=== PATIENT | male | born 1990 | race Caucasian/White ===

== ENCOUNTER 2022-03-17 20:23 | Emergency (ER) | payer OTHER ==
[2022-03-17 20:54] VITALS: PULSE 88; RESP 16; TEMP 98.5
[2022-03-17] MEDS ORDERED: ORPHENADRINE 30 MG/ML 2 ML VIAL IM STA (23:42)
[2022-03-17] MEDS ORDERED: ALPRAZolam 0.25 MG TAB PO STA (23:42)
[2022-03-17] MEDS ORDERED: LIDOCAINE 5% PATCH TOPICAL SCH (23:45)
--- NOTE | 2022-03-17 23:46 | ED ---
General Adult HPI - General Chief complaint: GI Bleed Stated complaint: Abd Cramping/Bloody Stool Time Seen by Provider: 03/17/22 23:32 Source: patient Mode of arrival: ambulatory Limitations: no limitations - History of Present Illness Initial comments: This is a 31-year-old male that presents to the emergency room with complaints of bright red blood on the toilet paper when he wiped today. Patient states that he also has chronic low back pain. He is currently at [place] for the past 8 days for fentanyl abuse and is taking naproxen and Motrin for chronic pain. He states he has a history of back surgery for scoliosis as a child and he has had chronic back pain ever since. He states he also has anxiety. -: days(s) (1) Location: back Severity scale (1-10): 8 Quality: aching Consistency: constant Improves with: none Worsens with: movement Associated Symptoms: denies other symptoms - Related Data Allergies Allergy/AdvReac Type Severity Reaction Status Date / Time haloperidol [From Haldol] Allergy Unknown Verified 03/17/22 20:54 Review of Systems ROS Statement: Those systems with pertinent positive or pertinent negative responses have been documented in the HPI. ROS Other: All systems not noted in ROS Statement are negative. Past Medical History Past Medical History: Seizure Disorder History of Any Multi-Drug Resistant Organisms: None Reported Additional Past Surgical History / Comment(s): scoliosis surgery Past Psychological History: Anxiety, Bipolar, Depression, PTSD Smoking Status: Current every day smoker Past Alcohol Use History: None Reported Past Drug Use History: Heroin, Marijuana, Opiates General Exam Limitations: no limitations General appearance: alert, in no apparent distress Neck exam: Present: normal inspection, full ROM. Absent: tenderness, meningismus Respiratory exam: Present: normal lung sounds bilaterally. Absent: respiratory distress, accessory muscle use Cardiovascular Exam: Present: regular rate GI/Abdominal exam: Present: soft. Absent: distended, tenderness Rectal exam: Present: normal inspection, normal rectal tone. Absent: black stool, bloody stool, fecal impaction, hemorrhoids, mass, tenderness Extremities exam: Present: normal inspection, full ROM, normal capillary refill. Absent: tenderness, pedal edema Back exam: Present: normal inspection, paraspinal tenderness, vertebral tenderness, other (Midline surgical scar noted). Absent: CVA tenderness (R), CVA tenderness (L), rash noted Expanded Back exam: Absent: saddle anesthesia Neurological exam: Present: alert, oriented X3, normal gait Psychiatric exam: Present: normal affect, normal mood Skin exam: Present: warm, dry, intact, normal color. Absent: cyanosis, diaphoretic, petechiae, pallor Course Vital Signs 03/17/22 03/18/22 20:48 01:24 Temperature 98.5 F Pulse Rate 88 Respiratory 16 Rate Blood Pressure 116/68 111/65 O2 Sat by Pulse 99 Oximetry Medical Decision Making - Medical Decision Making Patient presents with complaints of bright red rectal bleeding once today. Patient states blood was on the toilet paper but no blood in the toilet bowl. Rectal exam shows no fissures, good tone and no gross blood. Abdomen is soft and nontender. Patient is eating a pizza at time of discharge. Vital signs are stable. Hemoglobin and hematocrit are stable. Patient was directed to follow up with his primary care doctor return to the emergency room with any new or concerning symptoms. - Lab Data Result diagrams: 03/18/22 00:12 Lab Results 03/18/22 Range/Units 00:12 WBC 8.6 (3.8-10.6) k/uL RBC 4.53 (4.30-5.90) m/uL Hgb 13.5 (13.0-17.5) gm/dL Hct 42.5 (39.0-53.0) % MCV 93.7 (80.0-100.0) fL MCH 29.7 (25.0-35.0) pg MCHC 31.7 (31.0-37.0) g/dL RDW 13.6 (11.5-15.5) % Plt Count 223 (150-450) k/uL MPV 7.4 Disposition Clinical Impression: Rectal bleeding Disposition: HOME SELF-CARE Condition: Good Instructions (If sedation given, give patient instructions): Gastrointestinal Bleeding (ED) Additional Instructions: Follow-up with the primary care doctor next week. Return to the emergency room with any new or concerning symptoms. Is patient prescribed a controlled substance at d/c from ED?: No Referrals: None,Stated [Primary Care Provider] - 1-2 days Time of Disposition: 01:13
[2022-03-18 01:06] LABS: HCT 42.5 % (39.0-53.0); HGB 13.5 gm/dL (13.0-17.5); MCH 29.7 pg (25.0-35.0); MCHC 31.7 g/dL (31.0-37.0); MCV 93.7 fL (80.0-100.0); Mean Platelet Volume 7.4; Platelet Count 223 k/uL (150-450); RBC 4.53 m/uL (4.30-5.90); RDW 13.6 % (11.5-15.5); WBC 8.6 k/uL (3.8-10.6)
[2022-03-18 01:25] VITALS: BP 111/65
== END 2022-03-18 01:25 | disposition home or self-care (01) ==
LOC: EC 20:23
DX: K62.5 Hemorrhage of anus and rectum (principal); F17.200 Nicotine dependence, unspecified, uncomplicated; F12.90 Cannabis use, unspecified, uncomplicated; F14.90 Cocaine use, unspecified, uncomplicated; F11.90 Opioid use, unspecified, uncomplicated
CPT/HCPCS: 36415; 85027; 96372; 99283